=== PATIENT | female | born 1995 | race Caucasian/White ===

== ENCOUNTER 2018-01-19 16:03 | Emergency (ER) | payer OTHER ==
--- NOTE | 2018-01-19 17:24 | UC ---
Dizzy HPI HPI Summary: 22 yo patient who states she has been feeling woozy ever since she started taking Axert for migraines on Monday, 3 days ago. She stopped taking the medication because she felt the room spinning around her in her bed in the morning so she would fall asleep and every time she opened her eyes the room would be spinning around. She states this lasted for several hours. She vomited once. These couple of days she was feeling 'slow and woozy' and earlier today after taking a shower she was applying gel in her hair then felt her vision tunneling in and was on the floor as her dog barked to warn her roommate that something was not right. She was brought in by roommate by car. Denies fever, blurred vision, numbness, weakness, pain or trauma as she fell, or recurrence of headaches that prompted her to take Axert. She states she has fainted in the past due to orthostatic hypotension and that her whole family has to take a lot of salt. LMD 2 weeks ago on IUD Agnieszka - History Of Current Complaint Chief Complaint: UCDizziness Stated Complaint: PASSED OUT AN HOUR AGO Time Seen by Provider: 01/19/18 16:52 Hx Obtained From: Patient Hx Last Menstrual Period: [id number] ?: No Onset/Duration: Sudden Onset, Lasting Minutes Timing: Seconds Severity Initially: Mild Severity Currently: None Pain Intensity: 0 Character: Room Spinning, Lightheaded, Weak, Dizzy Aggravating Factor(s): Position Change Alleviating Factor(s): Rest, Closing Eyes Associated Signs And Symptoms: Positive: Vomiting, Change In Medication - Risk Factors Cardiac Risk Factors: Negative CVA Risk Factor: Negative - Allergies/Home Medications Allergies/Adverse Reactions: Allergies Allergy/AdvReac Type Severity Reaction Status Date / Time metoclopramide [From Reglan] Allergy See Comment Verified 01/19/18 16:22 Home Medications: Home Medications Almotriptan Malate 6.25 mg PO Q6H PRN 01/19/18 [History Confirmed 01/19/18] Escitalopram Oxalate [Lexapro] 30 mg PO BEDTIME 01/19/18 [History Confirmed 04/02] Naproxen TAB* [Naprosyn 250 mg TAB*] 250 mg PO Q8H PRN 01/19/18 [History Confirmed 01/19/18] Ondansetron ODT TAB* [Zofran 4 MG Odt TAB*] 4 mg PO Q6H PRN 01/19/18 [History Confirmed 01/19/18] clonazePAM TAB(*) [KlonoPIN TAB(*)] 0.25 mg PO BEDTIME PRN 01/19/18 [History Confirmed 01/19/18] PMH/Surg Hx/FS Hx/Imm Hx Previously Healthy: Yes Psychological History: Depression - Surgical History Surgical History: None - Family History Known Family History: Negative: Cardiac Disease - Social History Alcohol Use: Occasionally Substance Use Type: None Smoking Status (MU): Never Smoked Tobacco Review of Systems Constitutional: Negative Neurological: Other - dizziness Psychological: Depressed All Other Systems Reviewed And Are Negative: Yes Physical Exam Triage Information Reviewed: Yes Appearance: Well-Appearing, No Pain Distress, Well-Nourished Vital Signs: Initial Vital Signs Temp 95.9 F 01/19/18 16:09 Pulse 75 01/19/18 16:09 Resp 16 01/19/18 16:09 BP 114/60 01/19/18 16:09 Pulse Ox 98 01/19/18 16:09 Vital Signs Reviewed: Yes Eyes: Positive: Conjunctiva Clear ENT: Positive: Hearing grossly normal, Pharynx normal, TMs normal, Uvula midline Neck: Positive: Supple, Nontender, No Lymphadenopathy Respiratory: Positive: Chest non-tender, Lungs clear, Normal breath sounds, No respiratory distress Cardiovascular: Positive: RRR, No Murmur, Pulses Normal, Brisk Capillary Refill Abdomen Description: Positive: Nontender, No Organomegaly, Soft, Bruit Bowel Sounds: Positive: Present Musculoskeletal Exam: Normal Musculoskeletal: Positive: Strength Intact, ROM Intact, No Edema Neurological: Positive: Alert, Muscle Tone Normal, Other: - CN II to XII grossly intact, FROMx4, tiptoe and heelwalk wnl, gait wnl, no ataxia, no adiado kinesia, sensory intact, DTR symmetric and present Dizzy Course/Dx - Course Course Of Treatment: Patient has history of orthostatic hypotension as well as several members in her family and has fainted in the past. Has discontinued medication that caused symptoms. F/u with PCP and ENT. Patient has goiter and has History of vegetarianism TSH abnormality in the past. Will order TFT, CBC and COMP to f/u with PCP, a referral has been made - Differential Dx/Diagnosis Provider Diagnoses: Goiter. Orthostatic hypertension. Vertigo as side effect of Axert Discharge - Sign-Out/Discharge Documenting (check all that apply): Discharge - Discharge Plan Condition: Stable Disposition: HOME Patient Education Materials: Vertigo (ED), Hypotension (ED), Thyroid Goiter (ED ) Referrals: No Primary Care Phys,NOPCP [Primary Care Provider] - [facility] [place] [facility] REFERRAL [Outside] Scott Salinas MD [Medical Doctor] - - Billing Disposition and Condition Condition: STABLE Disposition: HOME
[2018-01-19 17:53] VITALS: BP 109/69
[2018-01-20 13:46] LABS: ABS Basophils 0 10^3/ul (0-0.2); ABS Eosinophils 0.1 10^3/ul (0-0.6); ABS Monocytes 0.8 10^3/ul (0-0.8); ABS Neutrophils 6.3 10^3/ul (1.5-7.7); ABS Nucleated RBC 0 10^3/ul; Eosinophil % 0.8 % (0-6); Hematocrit 40 % (35-47); Hemoglobin 13.6 g/dl (12.0-16.0); Lymphocyte % 21.7 % (25-47); Mean Corpuscular HGB Conc 34 g/dl (31-36); Mean Corpuscular Hemoglobin 31 pg (27-31); Mean Corpuscular Volume 92 fL (80-97); Mean Platelet Volume 10.7 um3 (7.4-10.4); Nucleated Red Blood Cells % 0.1; Platelet Count 239 10^3/ul (150-450); Red Blood Count 4.39 10^6/ul (4.0-5.4); Red Cell Distribution Width 13 % (10.5-15); White Blood Count 9.2 10^3/ul (3.5-10.8)
[2018-01-20 14:30] LABS: EGFR Non-African American 121.5 (>60)
== END 2018-01-19 17:58 | disposition home or self-care (01) ==
LOC: UCEAST 16:03
DX: E04.9 Nontoxic goiter, unspecified (principal); I10 Essential (primary) hypertension; R42 Dizziness and giddiness; T39.8X5A Adverse effect of other nonopioid analgesics and antipyretics, not elsewhere classified, initial encounter; Y92.9 Unspecified place or not applicable; F32.9 Major depressive disorder, single episode, unspecified; Z88.8 Allergy status to other drugs, medicaments and biological substances
CPT/HCPCS: 36415; 80053; 84439; 84443; 85025; 93005; 99211; G0463

== ENCOUNTER 2018-07-07 00:16 | Emergency (ER) | payer OTHER ==
--- NOTE | 2018-07-07 00:36 | ED ---
Psychiatric Complaint - HPI Summary HPI Summary: This patient is a 22 year old female BIBA to [facility] with a chief complaint of SI/ self-harm since earlier today. Patient states that she was arguing with her roommates, which set off her anxiety. Patient states she drank some alcohol with klonopin. Patient also presents with superficial cutting on her left palm. Her roommates became concerned that patient was harming herself and of SI and called 911. In ED, patient appears very anxious and tearful. Patient also seems fearful and states that she had a bad ER visit once before and is scared this visit will be similar. - History Of Current Complaint Time Seen by Provider: 07/07/18 00:28 Hx Obtained From: Patient Hx Last Menstrual Period: [id number] Onset/Duration: Lasting Minutes, Still Present Timing: Constant Severity Currently: Moderate Character: Depressed, Fearful, Anxious Aggravating Factor(s): Nothing Alleviating Factor(s): Nothing Has Suicidal: Denies: Thoughts - Allergies/Home Medications Allergies/Adverse Reactions: Allergies Allergy/AdvReac Type Severity Reaction Status Date / Time metoclopramide [From Reglan] Allergy See Comment Verified 01/19/18 16:22 PMH/Surg Hx/FS Hx/Imm Hx Previously Healthy: Yes Endocrine/Hematology History: Denies: Hx Diabetes Cardiovascular History: Denies: Hx Hypertension, Hx Pacemaker/ICD History: Denies: Hx Renal Disease Sensory History: Denies: Hx Hearing Aid Opthamlomology History: Denies: Hx Legally Blind EENT History: Denies: Hx Deafness Psychiatric History: Reports: Hx Anxiety - controlled with lexapro Denies: Hx Panic Disorder - Family History Known Family History: Negative: Cardiac Disease - Social History Lives: Dormitory/Roommates Alcohol Use: Occasionally Hx Substance Use: No Substance Use Type: Reports: None Hx Tobacco Use: No Smoking Status (MU): Never Smoked Tobacco Review of Systems Negative: Fever Positive: Other - superficial cuts to left palm Positive: Anxious, Depressed All Other Systems Reviewed And Are Negative: Yes Physical Exam - Summary Physical Exam Summary: Appearance: Well-appearing, Well-nourished, lying in bed comfortable Skin: Warm, dry, no obvious rash Eyes: sclera anicteric, no conjunctival pallor ENT: mucous membranes moist Neck: deferred Respiratory: No signs of respiratory distress Cardiovascular: Appears well perfused, pulses are nml Abdomen: deferred Musculoskeletal: Moving all 4 extremities without obvious discomfort Neurological: Awake and alert, mentation is normal, speech is fluent and appropriate Psychiatric: patient is tearful and anxious Triage Information Reviewed: Yes Vital Signs Reviewed: Yes Diagnostics - Laboratory Result Diagrams: 07/07/18 01:02 07/07/18 01:02 Lab Statement: Any lab studies that have been ordered have been reviewed, and results considered in the medical decision making process. Course/Dx - Course Assessment/Plan: This patient is a 22 year old female BIBA to [facility] with a chief complaint of SI/self-harm since earlier today. Bloodwork Obtained. Patient will be signed out to Dr. Deleon at end of shift, pending MHE. - Differential Dx/Clinical Impression Provider Diagnosis: Suicidal ideation Discharge - Sign-Out/Discharge Documenting (check all that apply): Sign-Out Patient Signing out patient TO: Quinten Deleon - Discharge Plan Disposition: HOME Referrals: [facility] [Outside] - As Soon As Possible (Please call and try to get yourself established with a therapist on campus) No Primary Care Phys,NOPCP [Primary Care Provider] - - Billing Disposition and Condition Disposition: Home - Attestation Statements Document Initiated by Scribe: Yes Documenting Scribe: Dieter Rodriguez Provider For Whom Morena is Documenting (Include Credential): Heri Garcia MD Scribe Attestation: Dieter Bernard, scribed for Heri Garcia MD on 07/21/18 at 0452. Scribe Documentation Reviewed: Yes Provider Attestation: The documentation as recorded by the Dieter duke accurately reflects the service I personally performed and the decisions made by me, Heri Garcia MD
[2018-07-07 01:09] LABS: ABS Basophils 0 10^3/ul (0-0.2); ABS Eosinophils 0.1 10^3/ul (0-0.6); ABS Lymphocytes 3.4 10^3/ul (1.0-4.8); ABS Monocytes 0.6 10^3/ul (0-0.8); ABS Neutrophils 5.3 10^3/ul (1.5-7.7); ABS Nucleated RBC 0 10^3/ul; Eosinophil % 1.2 % (0-6); Hematocrit 38 % (35-47); Hemoglobin 12.9 g/dl (12.0-16.0); Lymphocyte % 35.8 % (25-47); Mean Corpuscular HGB Conc 34 g/dl (31-36); Mean Corpuscular Hemoglobin 31 pg (27-31); Mean Corpuscular Volume 91 fL (80-97); Mean Platelet Volume 8.9 um3 (7.4-10.4); Nucleated Red Blood Cells % 0.2; Platelet Count 266 10^3/ul (150-450); Red Blood Count 4.15 10^6/ul (4.00-5.40); Red Cell Distribution Width 13 % (10.5-15); White Blood Count 9.4 10^3/ul (3.5-10.8)
[2018-07-07 01:27] LABS: EGFR Non-African American 107.4 (>60)
[2018-07-07 07:03] VITALS: BP 145/95
--- NOTE | 2018-07-07 09:21 | PN ---
Progress Note - Progress Note Date of Service: 07/07/18 Note: SIGN-OUT FROM DR. GARCIA AT SHIFT CHANGE PENDING MHE. MDM: I did not see this patient. Pt was discharged prior to change of shift. At 0848: I attempted to discuss the pt with RILEY Salas banding machine operator, who also does not have information about the pt. Based on records found in EMR ([facility]: Evaluation Part 2), the banding machine operator discussed pt disposition with Dr. Garcia at 0645, and the nurse subsequently discharged the patient prior to shift change. I did not evaluate this patient. This is Albert duke, documenting for attending Dr. Quinten Deleon MD
== END 2018-07-07 07:02 | disposition home or self-care (01) ==
LOC: ED 00:16
DX: R45.851 Suicidal ideations (principal); F41.9 Anxiety disorder, unspecified; Z91.5 Personal history of self-harm; Z79.899 Other long term (current) drug therapy; Z88.8 Allergy status to other drugs, medicaments and biological substances
CPT/HCPCS: 36415; 80053; 80307; 80320; 84702; 85025; 99285; G0480

== ENCOUNTER → 2018-08-15 10:11 | Emergency (ER) | payer OTHER ==
[~2018-08-15 10:11] MED LIST: Gabapentin CAP(*) 100 MG PO ONE; Ketorolac INJ* 30 MG/ML 1 ML VIAL IV ONE; NS 0.9% 1000 ML* 2,000 ML IV ONE; Ondansetron INJ* 2 MG/ML VIAL IV ONE; clonazePAM TAB(*) 0.5 MG PO ONE; diPHENhydraMINE PO* 50 MG PO ONE
--- NOTE | 2018-08-15 11:09 | ED ---
Headache - HPI Summary HPI Summary: This patient is a 22 year old F presenting to [facility] with a chief complaint of sudden onset constantly worsening left frontal throbbing migraine since AM. PMHx migraines, concussion, extensive FHx migraines (mother, father, grandmother, aunts, uncles). She notes that she was rx but does not take Triptan medication anymore secondary to side effects. Regarding her migraine; This ones just really, really bad, and is not going away. She denies typical visual sx, but today she endorses them (blurred vision, difficulty reading, 1 big black spot in vision), photophobia, sound sensitivity, L eye pain, shoulder and upper back pain, N/V (emesis at 3 AM today), and decreased appetite. She denies cough, rhinorrhea, SHx. Pt has used her rx nasal toradol , naproxen yesterday and today to no avail (unsure of dosages). Pts home neurologist is Dr. Lucinda Mckee at [facility], who has prescribed Lexapro 30mg, Buspar 15 mg BID, .025 klonopin PM, gabapentin 200mg at PM, 150 mg spironolactone. Pt was at [facility] on 08/13/18, who gave IM Toradal and Benadryl, Zofran PO, which did not alleviate sx. She endorses that marijuana tends to help migraines, but has also failed to alleviate sx. LMP , migraines not connected to menses. - History Of Current Complaint Chief Complaint: EDHeadache Stated Complaint: MIGRANE Time Seen by Provider: 08/15/18 10:45 Hx Obtained From: Patient Hx Last Menstrual Period: 08/08/18 Onset/Duration: Gradual Onset, Still Present, Worse Since - constantly Initially Headache Was: Moderate Currently Pain Is: Severe Timing: Constant Character: Throbbing Location of Headache: Frontal - L Radiates to: nowhere Aggravating Factor: Bright Lights, Other - loud noises Allevating Factors: Nothing Associated Signs And Symptoms: Nausea, Vomiting, Visual Changes - photophobia, scotoma, Other (Noted In Comments) - shoulder and upper back pain Related History: Similar Episode/DX As: - PMHx migriane, Remote Trauma: - concussion long ago - Allergies/Home Medications Allergies/Adverse Reactions: Allergies Allergy/AdvReac Type Severity Reaction Status Date / Time metoclopramide [From Reglan] Allergy See Comment Verified 08/15/18 10:32 PMH/Surg Hx/FS Hx/Imm Hx Previously Healthy: Yes Endocrine/Hematology History: Denies: Hx Diabetes, Hx Sickle Cell Disease Cardiovascular History: Denies: Hx Hypertension, Hx Pacemaker/ICD Respiratory History: Denies: Hx Lung Cancer History: Denies: Hx Renal Disease Sensory History: Denies: Hx Legally Blind, Hx Deafness, Hx Hearing Aid Opthamlomology History: Denies: Hx Legally Blind EENT History: Denies: Hx Deafness Neurological History: Reports: Hx Migraine Psychiatric History: Reports: Hx Anxiety - controlled with lexapro, Hx Eating Disorder - Bulemia/Anorexia Denies: Hx Panic Disorder - Surgical History Surgery Procedure, Year, and Place: none Infectious Disease History: No Infectious Disease History: Denies: Traveled Outside the [place] in Last 30 Days - Family History Known Family History: Positive: Other - migraine (mother, father, grandparents , aunts and uncles) Negative: Cardiac Disease - Social History Occupation: Student Lives: Dormitory/Roommates Alcohol Use: Occasionally Hx Substance Use: Yes Substance Use Type: Reports: Marijuana Hx Tobacco Use: No Smoking Status (MU): Never Smoked Tobacco Review of Systems Negative: Fever Positive: Photophobia, Blurred Vision, Other - scotoma left eye Negative: Nasal Discharge Negative: Cough Positive: Vomiting, Nausea, Other - decreased appetite Positive: no symptoms reported Positive: Myalgia - shoulders, upper back Skin: Negative Positive: Headache - migraine Psychological: Normal All Other Systems Reviewed And Are Negative: Yes Physical Exam - Summary Physical Exam Summary: Appearance: ill-appearing, moderate pain distress, well-nourished, photophobic Skin: Warm, color reflects adequate perfusion, dry Head: Normal Head/Face inspection, atraumatic Eyes: Conjunctiva clear, PERRL, EOMI, no nystagmus, vision intact for counting fingers ENT: Mucosal membranes moist, tonsils enlarged bilaterally without exudate Neck: Supple, no nodes, no JVD Respiratory: Lungs clear, normal breath sounds, no respiratory distress Cardio: RRR, No murmur, pulses normal, brisk capillary refill Abdomen: Soft, non-tender Bowel sounds: Present Musculoskeletal: Strength Intact/ROM intact, no calf tenderness, no edema. Psychological: Normal Neuro: A&O x3, CN II-XII intact, motor function 5/5, sensation intact, cerebellar normal Triage Information Reviewed: Yes Vital Signs On Initial Exam: Initial Vitals Temp Pulse Resp BP Pulse Ox 97 F 90 16 108/72 95 08/15/18 10:29 08/15/18 10:29 08/15/18 10:29 08/15/18 10:29 08/15/18 10:29 Vital Signs Reviewed: Yes - Mckenzie Coma Scale Best Eye Response: 4 - Spontaneous Best Motor Response: 6 - Obeys Commands Best Verbal Response: 5 - Oriented Coma Scale Total: 15 Diagnostics - Vital Signs Vital Signs Temp Pulse Resp BP Pulse Ox 08/15/18 10:29 97 F 90 16 108/72 95 - Laboratory Result Diagrams: 08/15/18 11:28 08/15/18 11:28 Lab Statement: Any lab studies that have been ordered have been reviewed, and results considered in the medical decision making process. Re-Evaluation - Re-Evaluation First Eval Re-Evaluation Time: 13:40 Change: Improved Comment: Was able to sleep, tolerate PO, s/p ED tx. Still with left headache, but improved. Is agreeable to discharge. Will take an uber ride home. Headache Course/Dx - Course Course Of Treatment: Pt with history of migraine presents with more severe migraine than usual, with scotoma, N/V. A 22-year-old F presents to the ED with a CC of OLMOS for 3 days. (+) blurred vision, difficulty reading, 1 big black spot in vision, photophobia, sound sensitivity, L eye pain, shoulder and upper back pain, N/V (emesis at 3 AM today), and decreased appetite. (-) cough, rhinorrhea, SHx. PMHx migraines, but this episode worse, as it includes visual sx and non-improving pain. extensive FHx migraine. Pt has used her rx nasal toradol 08/14/18, naproxen yesterday and today to no avail (unsure of dosages). Pts home neurologist is Dr. Lucinda Mckee at [facility], who has prescribed Lexapro 30mg, Buspar 15 mg BID, .025 klonopin PM, gabapentin 200mg at PM, 150 mg spironolactone. Pt was at [facility] on 08/13/18, who gave IM Toradal and Benadryl, Zofran PO, which did not alleviate sx. In the ED course , pt was given benadryl, neurontin, toradol, zofran, klonopin, and nl saline. pt labs show high mono %, high glucose. Normal wbc, normal ESR. - Diagnoses Differential Diagnosis/HQI/PQRI: Migraine, Sinus Headache, Tension Headache Provider Diagnoses: Migraine headache Discharge - Sign-Out/Discharge Documenting (check all that apply): Patient Departure - discharge - Discharge Plan Condition: Stable Disposition: HOME Patient Education Materials: Migraine Headache (ED) Forms: *School Release Referrals: [facility] [Outside] - 1 Day (if needed.) Sajan Venegas MD [Medical Doctor] - As Soon As Possible (for migraine follow up ) [facility] [[employer], APPLICATION, OTHER] - Additional Instructions: You were given toradol 30mg IV, benadryl 50mg orally, zofran 4mg IV, gabapentin 200mg orally, IV fluids and clonazepam 0.5mg orally while you were in the ER. Continue your usual medications. Have follow up with [facility] neurology as soon as possible. You may go to the [facility] clinic in the next 1-2 days if you feel you need to be sooner, and cannot get into a doctor. You may also follow up with [facility]. Return to the ER if you have new or worsening symptoms. - Billing Disposition and Condition Condition: STABLE Disposition: Home - Attestation Statements Document Initiated by Morena: Yes Documenting Scribe: Johnathan Espino Provider For Whom Morena is Documenting (Include Credential): Dr. Florina Pemberton MD Scribe Attestation: Johnathan Bernard scribed for Dr. Florina Pemberton MD on 08/15/18 at 2305. Scribe Documentation Reviewed: Yes Provider Attestation: The documentation as recorded by the Johnathan duke accurately reflects the service I personally performed and the decisions made by me, Dr. Florina Pemberton MD
[2018-08-15 11:39] LABS: ABS Basophils 0 10^3/ul (0-0.2); ABS Eosinophils 0.1 10^3/ul (0-0.6); ABS Monocytes 0.5 10^3/ul (0-0.8); ABS Neutrophils 4.6 10^3/ul (1.5-7.7); ABS Nucleated RBC 0 10^3/ul; Eosinophil % 1.1 % (0-6); Hematocrit 41 % (35-47); Hemoglobin 13.7 g/dl (12.0-16.0); Lymphocyte % 27.1 % (25-47); Mean Corpuscular HGB Conc 34 g/dl (31-36); Mean Corpuscular Hemoglobin 31 pg (27-31); Mean Corpuscular Volume 94 fL (80-97); Mean Platelet Volume 9.2 um3 (7.4-10.4); Nucleated Red Blood Cells % 0.1; Platelet Count 270 10^3/ul (150-450); Red Blood Count 4.34 10^6/ul (4.00-5.40); Red Cell Distribution Width 13 % (10.5-15); White Blood Count 7.2 10^3/ul (3.5-10.8)
[2018-08-15 13:10] VITALS: BP 96/47
--- NOTE | 2018-08-15 23:18 | ED ---
Progress - Progress Note Progress Note: 08/15/18 23:00: pt calls the ED and states she was able to sleep but still has a headache, the same as it was earlier, approx 6/10 but is not worse and visual symptoms are improved. Pt has not vomited. Has eaten only crackers, has drunk water. Pt advised that she may return to the ED for re-evaluation at any time, that there is a doctor here 24 hrs a day. Pt states she has roommates so that they can check on her or call 911 if she needs it. Pt advised that she may try to take additional doses of the medications she has at home. Advised: clonazepam 0.25-0.5mg po now, benadryl 50mg po now, naproxen 500mg or excedrin 2 tabs now, gabapentin 200mg po, and zofran 8mg po now. Pt also advised to try to eat bland diet, states she will try rice. Also advised that she may want to try pepsi or coke for the caffeine, fluids and a bit of sugar for calories. Pt states she will try this, and will return to the ED if no improvement or worsening of symptoms. Dr. Nieves on duty, advised of pt's prior care today. Re-Evaluation - Re-Evaluation First Eval Re-Evaluation Time: 13:40 Change: Improved Comment: Was able to sleep, tolerate PO, s/p ED tx. Still with left headache, but improved. Is agreeable to discharge. Will take an uber ride home. Course/Dx - Course Course Of Treatment: Pt with history of migraine presents with more severe migraine than usual, with scotoma, N/V. A 22-year-old F presents to the ED with a CC of OLMOS for 3 days. (+) blurred vision, difficulty reading, 1 big black spot in vision, photophobia, sound sensitivity, L eye pain, shoulder and upper back pain, N/V (emesis at 3 AM today), and decreased appetite. (-) cough, rhinorrhea, SHx. PMHx migraines, but this episode worse, as it includes visual sx and non-improving pain. extensive FHx migraine. Pt has used her rx nasal toradol 08/14/18, naproxen yesterday and today to no avail (unsure of dosages). Pts home neurologist is Dr. Lucinda Mckee at [facility], who has prescribed Lexapro 30mg, Buspar 15 mg BID, .025 klonopin PM, gabapentin 200mg at PM, 150 mg spironolactone. Pt was at [address] [place] [address] on 08/13/18, who gave IM Toradal and Benadryl, Zofran PO, which did not alleviate sx. In the ED course , pt was given benadryl, neurontin, toradol, zofran, klonopin, and nl saline. pt labs show high mono %, high glucose. Normal wbc, normal ESR. - Diagnoses Provider Diagnoses: Migraine headache Discharge - Sign-Out/Discharge Documenting (check all that apply): Post-Discharge Follow Up - advised regarding medications and follow up - Discharge Plan Condition: Stable Disposition: HOME Patient Education Materials: Migraine Headache (ED) Forms: *School Release Referrals: [facility] [Outside] - 1 Day (if needed.) Sajan Venegas MD [Medical Doctor] - As Soon As Possible (for migraine follow up ) [facility] [[employer], APPLICATION, OTHER] - Additional Instructions: You were given toradol 30mg IV, benadryl 50mg orally, zofran 4mg IV, gabapentin 200mg orally, IV fluids and clonazepam 0.5mg orally while you were in the ER. Continue your usual medications. Have follow up with [facility] neurology as soon as possible. You may go to the [facility] clinic in the next 1-2 days if you feel you need to be sooner, and cannot get into a doctor. You may also follow up with [facility]. Return to the ER if you have new or worsening symptoms. - Billing Disposition and Condition Condition: STABLE Disposition: Home
== END | disposition home or self-care (01) ==
LOC: ED 10:11
DX: G43.909 Migraine, unspecified, not intractable, without status migrainosus (principal); F41.9 Anxiety disorder, unspecified; Z88.8 Allergy status to other drugs, medicaments and biological substances
CPT/HCPCS: 36415; 80053; 85025; 85652; 86140; 96374; 96375; 99283; A9270-GY; J1885; J2405

== ENCOUNTER → 2018-08-16 10:44 | Emergency (ER) | payer SELFPAY ==
[~2018-08-16 10:44] MED LIST changes: -Gabapentin CAP(*) 100 MG PO ONE; -Ketorolac INJ* 30 MG/ML 1 ML VIAL IV ONE; +Ketorolac INJ* 30 MG/ML 1 ML VIAL IV PUSH ONE; +Morphine INJ* 4 MG/ML 1 ML SYRINGE (NEW SYRINGE VERSION) IV ONE; +Morphine INJ* 4 MG/ML 1 ML SYRINGE (NEW SYRINGE VERSION) ONE; +Morphine VIAL* 10 MG/ML 1 ML VIAL IV ONE; +Promethazine TAB* 25 MG PO ONE; -clonazePAM TAB(*) 0.5 MG PO ONE; +diPHENhydraMINE IV* 50 MG/ML 1 ml VIAL (BENADRYL) IV ONE; +diPHENhydraMINE PO* 50 MG ONE
--- NOTE | 2018-08-16 13:00 | ED ---
Headache - HPI Summary HPI Summary: A 22 y/o F presents to ED with ongoing migraine, more intense than normal. Pt was seen last night in ED by myself, Dr. Pemberton,given ketorolac IV, po benadryl , IV zofran, klonopin 0.5mgpo (her usual) and gabapentin 200mg (her usual) and IV fluids, and she was discharged home to continue with oral medications. She went home and was able to sleep for a few hours, but woke up at 0500 with continued intense L-sided OLMOS described as throbbing. She denies fever, sore throat, vomiting. She took powdered Excedrin and Benadryl 50mg this morning to no relief. Associated sx: ocular disturbances (black log in vision field). The vision changes had improved yesterday after ED treatment, but returned when she woke. She drank coca-cola this am with some relief and without vomiting. Pt is an [employer] student, musical theater, and has a show coming up next week. PMHx: concussion at 15 y/o. No recent head trauma. She did not smoke marijuana yesterday. She took Gabapentin, Zofran and Klonopin last night as directed by Dr. Pemberton. She took her daily meds this AM. Vital signs while in room: HR 88 bpm, BP 120/69. Home Medications Medication Instructions Recorded Confirmed Type Almotriptan Malate 6.25 mg PO Q6H PRN 01/19/18 07/07/18 History Escitalopram Oxalate [Lexapro] 30 mg PO BEDTIME 01/19/18 07/07/18 History Naproxen TAB* [Naprosyn 250 mg 250 mg PO Q8H PRN 01/19/18 07/07/18 History TAB*] Ondansetron ODT TAB* [Zofran 4 MG 4 mg PO Q6H PRN 01/19/18 07/07/18 History Odt TAB*] clonazePAM TAB(*) [KlonoPIN TAB(*)] 0.25 mg PO BEDTIME PRN 01/19/18 07/07/18 History - History Of Current Complaint Chief Complaint: EDHeadache Stated Complaint: HEADACHE Time Seen by Provider: 08/16/18 12:33 Hx Obtained From: Patient Hx Last Menstrual Period: 08/08/18 Onset/Duration: Gradual Onset, Started days ago, Still Present Initially Headache Was: Moderate Currently Pain Is: Current Pain Scale(0-10)= - 9, Severe Timing: Constant Character: Throbbing Location of Headache: Other: - left frontal, left orbital Aggravating Factor: Bright Lights Allevating Factors: Medication - ED treatment yesterday Associated Signs And Symptoms: Visual Changes, Other (Noted In Comments) - neg: fever, sore throat, vomiting Related History: Similar Episode/DX As: - migraine - Allergies/Home Medications Allergies/Adverse Reactions: Allergies Allergy/AdvReac Type Severity Reaction Status Date / Time metoclopramide [From Reglan] Allergy See Comment Verified 08/15/18 10:32 Home Medications: Home Medications Adapalene 0.3% GEL (NF) [Differin 0.3% GEL (NF)] 0.3 % TOPICAL DAILY 08/16/18 [ History Confirmed 08/16/18] Escitalopram (NF) [Lexapro 20 mg (NF)] 30 mg PO DAILY 08/16/18 [History Confirmed 08/16/18] Gabapentin CAP(*) [Neurontin 300 CAP(*)] 300 mg PO BEDTIME 08/16/18 [History Confirmed 08/16/18] Spironolactone (NF) [Spironolactone 50 MG (NF)] 150 mg PO DAILY 08/16/18 [ History Confirmed 08/16/18] busPIRone TAB* [Buspar TAB *] 15 mg PO BID 08/16/18 [History Confirmed 08/16/18] PMH/Surg Hx/FS Hx/Imm Hx Previously Healthy: Yes Endocrine/Hematology History: Denies: Hx Diabetes, Hx Sickle Cell Disease Cardiovascular History: Denies: Hx Hypertension, Hx Pacemaker/ICD Respiratory History: Denies: Hx Lung Cancer History: Denies: Hx Renal Disease Sensory History: Denies: Hx Legally Blind, Hx Deafness, Hx Hearing Aid Opthamlomology History: Denies: Hx Legally Blind Neurological History: Reports: Hx Migraine Psychiatric History: Reports: Hx Anxiety - controlled with lexapro, Hx Eating Disorder - Bulemia/Anorexia Denies: Hx Panic Disorder - Surgical History Surgery Procedure, Year, and Place: none Infectious Disease History: No Infectious Disease History: Denies: Traveled Outside the [place] in Last 30 Days - Family History Known Family History: Positive: Other - migraine (mother, father, grandparents , aunts and uncles) Negative: Cardiac Disease - Social History Occupation: Student Lives: Dormitory/Roommates Alcohol Use: Occasionally Hx Substance Use: Yes Substance Use Type: Reports: Marijuana Hx Tobacco Use: No Smoking Status (MU): Never Smoked Tobacco Review of Systems Negative: Fever Positive: Other - black "log" spot in field of vision Negative: Sore Throat Cardiovascular: Negative Respiratory: Negative Negative: Vomiting Musculoskeletal: Negative Skin: Negative Neurological: Other - pos: migraine Psychological: Normal All Other Systems Reviewed And Are Negative: Yes Physical Exam - Summary Physical Exam Summary: Appearance: Ill-appearing, moderate pain distress, well-nourished, photophobic Skin: Warm, color reflects adequate perfusion, dry Head: Normal Head/Face inspection, atraumatic Eyes: Conjunctiva clear, photophobic, PERRL, EOMI, no nystagmus ENT: Normal inspection. Large tonsils but they are not swollen, red, and are without exudate. TMs are normal. Neck: Supple, no nodes, no JVD Respiratory: Lungs clear, normal breath sounds, no respiratory distress Cardio: RRR, No murmur, pulses normal, brisk capillary refill Abdomen: Soft, nontender Bowel sounds: Present Musculoskeletal: Strength Intact/ROM intact, no calf tenderness, no edema. Psychological: Normal Neuro: Alert, muscle tone normal, no focal deficit, motor 5/5, sensation intact Triage Information Reviewed: Yes Vital Signs On Initial Exam: Initial Vitals Temp Pulse Resp BP Pulse Ox 97.6 F 88 18 120/69 98 08/16/18 10:48 08/16/18 10:48 08/16/18 10:48 08/16/18 10:48 08/16/18 10:48 Vital Signs Reviewed: Yes Diagnostics - Vital Signs Vital Signs Temp Pulse Resp BP Pulse Ox 08/16/18 10:48 97.6 F 88 18 120/69 98 - Laboratory Lab Statement: Any lab studies that have been ordered have been reviewed, and results considered in the medical decision making process. Re-Evaluation - Re-Evaluation 1 Re-Evaluation Time: 13:09 Change: Unchanged Comment: Discussing medication plan with pt: Toradol, Benadryl, Phenergan, and fluids. Discussed pt's allergy to Reglan (she becomes dystonic) and bad reaction to Zomig. 2 Re-Evaluation Time: 15:45 Change: Improved Comment: Pt still has OLMOS, but is now rated 3/10. Will give her morphine, which she has not had before. Scotoma resolved. 3 Re-Evaluation Time: 16:28 Change: Improved Comment: Pt is feeling improved, was sleeping at bedside. Headache Course/Dx - Course Course Of Treatment: Pt is a 22 y/o F seen by myself in ED yesterday presenting with ongoing migraine, more intense than normal. She slept for a few hours after D/C, but woke up this date at 0500 with intense L-sided OLMOS described as throbbing. She denies fever, sore throat, vomiting, but is having recurrent vision changes (scotoma left eye that was present yest, resolved, then returned today). She took Gabapentin, Zofran and Klonopin last night. She took her daily meds this AM. Pt given fluids, Toradol, Benadryl, Phenergan, zofran and Morphine in ED. Allergies noted. Pt medications reviewed this visit. Pt's headache and scotoma resolved with the above medications in the ED, and pt was agreeable to discharge. She will continue her usual medications and have follow up with neurology DERREK, as directed yesterday. She may also continue with her neurologist in [place]. - Diagnoses Differential Diagnosis/HQI/PQRI: Migraine, Sinus Headache, Tension Headache Provider Diagnoses: Status migrainosus, Scotoma involving central area in visual field of left eye Discharge - Sign-Out/Discharge Documenting (check all that apply): Patient Departure - DC - Discharge Plan Condition: Stable Disposition: HOME Patient Education Materials: Migraine Headache (ED) Referrals: [facility] [Z.BUSINESS, APPLICATION, OTHER] - 1 Day Additional Instructions: Continue your usual medications. You were given toradol 30mg IV, benadryl 50mg orally, phenergan 25mg orally, gabapentin 200mg orally, morphine 4mg IV and zofran 4mg IV with relief of your headache. Return to the ER if you have new or worsening symptoms. - Billing Disposition and Condition Condition: STABLE Disposition: Home - Attestation Statements Document Initiated by Scribe: Yes Documenting Scribe: [facility] Provider For Whom Scribe is Documenting (Include Credential): Dr. Florina Pemberton MD Scribe Attestation: IAlbert, scribed for Dr. Florina Pemberton MD on 08/20/18 at 2244. Scribe Documentation Reviewed: Yes Provider Attestation: The documentation as recorded by the leilani, Albert Samano accurately reflects the service I personally performed and the decisions made by me, Dr. Florina Pemberton MD
[2018-08-16 16:46] VITALS: BP 116/76
== END | disposition home or self-care (01) ==
LOC: ED 10:44
DX: G43.001 Migraine without aura, not intractable, with status migrainosus (principal); H53.412 Scotoma involving central area, left eye; F41.9 Anxiety disorder, unspecified; Z88.8 Allergy status to other drugs, medicaments and biological substances
CPT/HCPCS: 96374; 96375; 99283; A9270-GY; J1885; J2270; J2405